=== PATIENT | female | born 1940 | race Caucasian/White ===

== ENCOUNTER 2018-06-26 08:14 | Emergency (ER) | payer MEDICARE, OTHER, BC | END 2018-06-26 10:15 | disposition home or self-care (01) | LOC: FTE 08:14 | DX: J06.9 Acute upper respiratory infection, unspecified (principal); E11.9 Type 2 diabetes mellitus without complications; Z79.4 Long term (current) use of insulin; Z79.82 Long term (current) use of aspirin | CPT/HCPCS: 71046; 99283-25 ==

== ENCOUNTER 2018-09-20 16:42 | Emergency (ER) | payer MEDICARE, OTHER ==
[2018-09-20 17:54] LABS: ADD MAN DIFF? NO
[2018-09-20 17:56] LABS: WHITE BLOOD COUNT 8.4 10^3/ul (4.8-10.8)
[2018-09-20 17:56] LABS: BASOPHIL # 0.1 10^3/ul (0.0-0.1); BASOPHILS % 0.6 % (0.0-2.0); EOSINOPHILS # 0.1 10^3/ul (0.0-0.5); HEMATOCRIT 38.3 % (37.0-47.0); HEMOGLOBIN 12.6 g/dl (12.0-16.0); LYMPHOCYTES # 1.8 10^3/ul (0.8-2.9); LYMPHOCYTES % 21.1 % (15.0-51.0); MEAN CORPUSCULAR HEMOGLOBIN 29.1 pg (29.0-33.0); MEAN CORPUSCULAR HGB CONC 32.9 g/dl (32.0-37.0); MEAN CORPUSCULAR VOLUME 88.5 fl (82.0-101.0); MEAN PLATELET VOLUME 10.3 fl (7.4-10.4); MONOCYTE # 0.6 10^3/ul (0.3-0.9); MONOCYTES % 6.8 % (0.0-11.0); NEUTROPHIL # 5.9 10^3/ul (1.6-7.5); NEUTROPHILS % 70.3 % (39.0-77.0); PLATELET COUNT 224 10^3/UL (140-415); RED BLOOD COUNT 4.33 10^6/ul (4.20-5.40); RED CELL DISTRIBUTION WIDTH 12.9 % (11.5-14.5)
[2018-09-20] MEDS: SOD CHLORIDE 0.9% 1,000 ML IV (17:56)
[2018-09-20 18:18] LABS: ANION GAP 8 (5-13); BLOOD UREA NITROGEN 16 mg/dl (7-20); CARBON DIOXIDE 30 mmol/L (21-31); CHLORIDE 101 mmol/L (97-110); CREATININE 0.82 mg/dl (0.44-1.00); GLUCOSE 225 mg/dl (70-220); POTASSIUM 4.3 mmol/L (3.5-5.1); SODIUM 139 mmol/L (135-144)
[2018-09-20 18:30] LABS: TROPONIN-I < 0.012 ng/ml (0.000-0.120)
== END 2018-09-20 19:46 | disposition home or self-care (01) ==
LOC: E/R 16:42
DX: R53.1 Weakness (principal); I10 Essential (primary) hypertension; E11.9 Type 2 diabetes mellitus without complications; Z79.4 Long term (current) use of insulin; Z79.82 Long term (current) use of aspirin
CPT/HCPCS: 36415; 71045; 80048; 84484; 85025; 93005; 99285-25